=== PATIENT | female | born 1995 | race Caucasian/White ===

== ENCOUNTER 2018-07-09 17:07 | Inpatient (IN) | payer OTHER ==
[2018-07-09] MEDS ORDERED: HYDROmorphONE/DILAUDID 2 MG/ML INJ IVP ONE (17:39)
[2018-07-09] MEDS ORDERED: NS 1,000 ML IV ONE ×2 (17:39→18:14)
[2018-07-09] MEDS ORDERED: FAMOTIDINE 20 MG/NACL 50 ML IV ONE (17:39)
[2018-07-09] MEDS ORDERED: ONDANSETRON 4 MG/2 ML VIAL IVP ONE ×2 (17:39→20:03)
--- NOTE | 2018-07-09 17:45 | EDPHY ---
H & P Time Seen by Provider: 07/09/18 17:22 HPI/ROS: HPI Abdominal pain. 23-year-old female by private vehicle with boyfriend. This patient reports that over the last 3-4 weeks she has had intermittent crampy mid abdominal pain mostly after meals unusually starting in the morning. She also reports that to some extent she has had this type of pain for the last 6 months. She reports that this pain usually lasts about 3-4 hours and then resolves. She woke up this morning and developed the pain. The pain has been persistent all day and coming on in waves of intensity. Pain is described as sharp and cramping and mostly in her mid upper abdomen. She reports having associated diarrhea which she has had in the past. She reports having nausea but no vomiting. She denies any bloody or melenic stool. No prior abdominal surgical history. ROS: Constitutional: No fever, no chills. No weakness. Eyes: No discharge. No changes in vision. ENT: No sore throat. No nasal congestion or rhinorrhea. Respiratory: No cough. No shortness of breath. Cardiac: No chest pain, no palpitations. Gastrointestinal: As above. Genitourinary: No hematuria. No dysuria or increased frequency with urination. Musculoskeletal: No back pain. No neck pain. No myalgias or arthralgias. Skin: No rashes. Neurological: No headache. No focal weakness or altered sensation. Past medical history: As above. And asthma. Review of her medical records reveals that she was admitted to the hospital with similar complaints in late May of 2016. At that time CT scan showed inflammation of the ileum. She was ultimately diagnosed with a Cryptosporidium infection with likely underlying inflammatory bowel disease. A colonoscopy was not done. She was discharged on appropriate antibiotics and Infectious Disease Clinic follow-up. Social history: Occasional alcohol. Nonsmoker. Here with her boyfriend. Physical Exam: General Appearance: Alert, very anxious and emotional. She appears uncomfortable. This patient is responding to questions appropriately and in full sentences. This patient appears well-hydrated and well-nourished. Eyes: Pupils equal and round no pallor or injection. No lid edema, erythema or injection. Respiratory: There are no retractions, lungs are clear to auscultation with good air movement bilaterally. Cardiovascular: Regular rate and rhythm. No murmur. Gastrointestinal: Abdomen is soft with mid epigastric tenderness on palpation, she also has some mild right lower quadrant tenderness on palpation, no masses, bowel sounds normal. No focal tenderness at McBurney's point. No Haskins sign. Neurological: Motor sensory function is grossly intact. Cranial nerves are normal. Gait is normal. Skin: Warm and dry, no rashes. Musculoskeletal: Neck is supple and nontender. Extremities are symmetrical. All joints range without pain or impingement. Psychiatric: No agitation. No depression. Database: EKG: Imaging: Right upper quadrant ultrasound: The appendix is well visualized and is normal. The gallbladder, ductal system and right upper quadrant anatomy including the pancreas were well visualized and are normal. Results were discussed with staff radiologist Dr. Kei Friedman. Procedures: Emergency department course: Triage vital signs reviewed. She is tachycardic at 111. Triage vital signs are otherwise normal. She is afebrile. IV was placed. She was started on IV normal saline with 1 L to be given over the next hour. She will initially be given 20 mg of IV Pepcid, 4 mg of IV Zofran and 0.5 mg of IV hydromorphone. Ultrasound of gallbladder and right lower quadrant to be obtained. She consents to workup. 7:00 p.m., patient re-evaluated, ultrasound is just starting at this time. Her pain however is well controlled and she is feeling much better. 8:00 p.m., the patient is complaining of nausea again. She was given 6.25 mg of IV Phenergan and 4 mg of IV Zofran. 8:20 p.m., the patient was re-evaluated, results of her blood work and ultrasound discussed with her and her boyfriend. I discussed discharging her but she does not want to do this. She states that she does not feel well enough to be discharged. I explained I would admit her for observation, IV hydration and antiemetics. Repeat abdominal exam she is soft with mild and vague tenderness on palpation in the mid and upper abdomen. Hospitalist paged for admission. 8:45 p.m., spoke with hospitalist, Dr. Sheth. Case discussed in detail with her. She accepts this patient for admission to the hospitalist service. The patient was admitted to the hospitalist service in stable condition. Differential Diagnosis: The differential diagnosis on this patient includes but is not limited to irritable bowel syndrome, inflammatory bowel syndrome, pancreatitis, cholecystitis, biliary colic. This represents a partial list of diagnoses considered. These considerations are based on history, physical exam, past history, reassessment and diagnostic testing. Smoking Status: Never smoked Constitutional: Initial Vital Signs Temperature (C) 36.6 C 07/09/18 17:12 Heart Rate 111 H 07/09/18 17:12 Respiratory Rate 18 07/09/18 17:12 Blood Pressure 121/84 H 07/09/18 17:12 O2 Sat (%) 99 07/09/18 17:12 O2 Delivery Mode Room Air Allergies/Adverse Reactions: No Known Allergies Allergy (Verified 07/09/18 17:11) Home Medications: Medication Instructions Recorded Ascorbic Acid [Vitamin C 500 mg 500 mg PO DAILY 07/09/18 (*)] Ethinyl Estradiol/Drospirenone 1 each PO DAILY 07/09/18 [Calli 3 mg-0.02 mg Tablet] Herbals/Supplements -Info Only 1 ea PO DAILY 07/09/18 Ibuprofen [Motrin (*)] 200 mg PO Q6H PRN 07/09/18 Medical Decision Making - Data Points Laboratory Results: Laboratory Results 07/10/18 04:37 07/10/18 04:37 Microbiology Results: MICROBIOLOGY 07/09/18 22:15 Stool Gastrointestinal Tract Panel (PCR) - Final Astrovirus Medications Given: Hydromorphone HCl (Dilaudid) 0.2 - 0.4 mg IVP Q4HRS PRN PRN Reason: Pain, Severe Unable to Take PO Stop: 07/19/18 21:58 Last Admin: 07/10/18 19:33 Dose: 0.4 mg Hyoscyamine Sulfate (Levsin, Hyomax-Sl) 0.125 mg PO Q6HRS PRN PRN Reason: Spasms Stop: 01/06/19 13:37 Last Admin: 07/10/18 13:56 Dose: 0.125 mg Sodium Chloride (Ns) 1,000 mls @ 100 mls/hr IV CONT JAY JAY Stop: 01/05/19 21:59 Last Admin: 07/09/18 22:36 Dose: 1,000 mls Lorazepam (Ativan Injection) 0.5 - 1 mg IVP Q8HRS PRN PRN Reason: Anxiety, Unable to Take PO Stop: 01/05/19 21:58 Last Admin: 07/10/18 13:46 Dose: 1 mg Miscellaneous Medication (Ethinyl Estradiol/Drospirenone [Calli 3 Mg-0.02 Mg Tablet]) 1 each PO DAILY JAY JAY Stop: 01/06/19 08:59 Last Admin: 07/10/18 08:36 Dose: Not Given Ondansetron HCl (Zofran) 4 mg IVP Q4HRS PRN PRN Reason: Nausea/Vomiting, Can't Take PO Stop: 01/05/19 21:58 Last Admin: 07/10/18 11:32 Dose: 4 mg Pantoprazole Sodium (Protonix) 40 mg PO DAILY JAY JAY Stop: 01/06/19 18:14 Last Admin: 07/10/18 18:33 Dose: 40 mg Promethazine HCl (Phenergan) 6.25 - 12.5 mg IVP Q6HRS PRN PRN Reason: Nausea/Vomiting, Use 2nd Stop: 01/05/19 21:58 Last Admin: 07/10/18 12:12 Dose: 12.5 mg Discontinued Medications Hydromorphone HCl (Dilaudid) 0.5 mg IVP EDNOW ONE Stop: 07/09/18 17:40 Last Admin: 07/09/18 17:53 Dose: 0.5 mg Sodium Chloride (Ns) 1,000 mls @ 0 mls/hr IV EDNOW ONE; Wide Open PRN Reason: Protocol Stop: 07/09/18 17:40 Last Admin: 07/09/18 17:57 Dose: 1,000 mls Famotidine/Sodium Chloride (Pepcid 20 Mg (Premix)) 50 mls @ 200 mls/hr IV EDNOW ONE Stop: 07/09/18 17:53 Last Admin: 07/09/18 17:56 Dose: 50 mls Sodium Chloride (Ns) 1,000 mls @ 0 mls/hr IV EDNOW ONE; Wide Open PRN Reason: Protocol Stop: 07/09/18 18:15 Last Admin: 07/09/18 18:15 Dose: 1,000 mls Lorazepam (Ativan Injection) 1 mg IVP ONCE ONE Stop: 07/10/18 18:46 Last Admin: 07/10/18 18:33 Dose: 1 mg Ondansetron HCl (Zofran) 4 mg IVP EDNOW ONE Stop: 07/09/18 17:40 Last Admin: 07/09/18 17:54 Dose: 4 mg Ondansetron HCl (Zofran) 4 mg IVP EDNOW ONE Stop: 07/09/18 20:04 Last Admin: 07/09/18 20:07 Dose: 4 mg Promethazine HCl (Phenergan) 12.5 mg IVP ONCE ONE Stop: 07/09/18 18:10 Last Admin: 07/09/18 18:13 Dose: 12.5 mg Promethazine HCl (Phenergan) 6.25 mg IVP EDNOW ONE Stop: 07/09/18 20:03 Last Admin: 07/09/18 20:07 Dose: 6.25 mg Departure - Departure Disposition: [facility] Acute Clinical Impression: Upper abdominal pain, Diarrhea
[2018-07-09 18:00] LABS: PLATELET COUNT 299 10^3/uL (150-400)
[2018-07-09] MEDS ORDERED: PROMETHAZINE HCL 25 MG/ML INJ IVP ONE ×2 (18:09→20:02)
[2018-07-09] MEDS ORDERED: LORazepam 0.5 MG TAB PO PRN (21:59)
[2018-07-09] MEDS ORDERED: HYDROCODONE/APAP 5/325 TAB PO PRN (21:59)
[2018-07-09] MEDS ORDERED: LORazepam 2 MG/ML INJ IVP PRN (21:59)
[2018-07-09] MEDS ORDERED: ACETAMINOPHEN 325 MG TAB PO PRN (21:59)
--- NOTE | 2018-07-09 22:10 | PDGENHP ---
History and Physical - Chief Complaint abd pain/diarrhea - History of Present Illness 23 yo F with no significant PMH presenting with severe abdominal pain, recurrent bouts of severe "explosive" diarrhea and nausea Patient notes that she has had this for the last 2 years at least and it occurs approximately every 2 to 3 weeks but seems to be increasing in incidents and severity. This time was the worst she has ever experienced. She was hospitalized here approximately 2 years ago for similar issues and at that time was seen by both ID and GI. There was a plan to have a colonoscopy but she had a positive cryptosporidium Ag and so that was deferred. She has not had any relief in her sxs since that time. She notes she has had issues with needing to take a long time to defecate since she was young, and in between the bouts of severe diarrhea this is still the case. She has changed her diet significantly to try to eliminate these sxs including avoiding dairy and most gluten with no change in sxs. She does have an appointment to see GI in July but as her sxs in the last 24 hours were so severe she did not feel she could wait until then. She is very concerned that she has Crohn's disease. History Information - Allergies/Home Medication List Allergies/Adverse Reactions: No Known Allergies Allergy (Verified 07/09/18 17:11) Home Medications: Ascorbic Acid [Vitamin C 500 mg (*)] 500 mg PO DAILY 07/09/18 [Last Taken Unknown] Ethinyl Estradiol/Drospirenone [Calli 3 mg-0.02 mg Tablet] 1 each PO DAILY 07/09 [Last Taken 07/09/18] Herbals/Supplements -Info Only 1 ea PO DAILY 07/09/18 [Last Taken Unknown] Ibuprofen [Motrin (*)] 200 mg PO Q6H PRN 07/09/18 [Last Taken Unknown] I have personally reviewed and updated: family history, medical history, social history, surgical history - Past Medical History no pertinent PMH Additional medical history: PTSD - Surgical History Reports: no pertinent surgical hx - Family History Additional family history: Mother with MS - Social History Smoking Status: Never smoked Alcohol Use: Occasionally Drug Use: Marijuana Additional social history: 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 Originally from [place], lives in the dormitory. Sexually active with 1 partner on OCPs. Denies STIs. Review of Systems Review of Systems: ROS: 10pt was reviewed & negative except for what was stated in HPI & below Physical Exam Physical Exam: Temp Pulse Resp BP Pulse Ox 36.6 C 99 24 H 99/71 L 96 07/09/18 17:12 07/09/18 18:16 07/09/18 18:16 07/09/18 18:16 07/09/18 18:16 Constitutional: no apparent distress, appears nourished Eyes: PERRL, anicteric sclera Ears, Nose, Mouth, Throat: moist mucous membranes, hearing normal Cardiovascular: regular rate and rhythym, no murmur, rub, or gallop, No edema Respiratory: no respiratory distress, no rales or rhonchi Gastrointestinal: normoactive bowel sounds, soft, non-tender abdomen Genitourinary: no bladder tenderness Skin: warm, normal color Musculoskeletal: full muscle strength Neurologic: AAOx3 Psychiatric: interacting appropriately, not anxious, not encephalopathic Lab Data & Imaging Review 07/09/18 17:30 07/09/18 17:30 WBC 5.74 10^3/uL (3.80-9.50) 07/09/18 17:30 RBC 4.80 10^6/uL (4.18-5.33) 07/09/18 17:30 Hgb 14.8 g/dL (12.6-16.3) 07/09/18 17:30 Hct 43.0 % (38.0-47.0) 07/09/18 17:30 MCV 89.6 fL (81.5-99.8) 07/09/18 17:30 MCH 30.8 pg (27.9-34.1) 07/09/18 17:30 MCHC 34.4 g/dL (32.4-36.7) 07/09/18 17:30 RDW 12.1 % (11.5-15.2) 07/09/18 17:30 Plt Count 299 10^3/uL (150-400) 07/09/18 17:30 MPV 9.7 fL (8.7-11.7) 07/09/18 17:30 Neut % (Auto) 69.1 % (39.3-74.2) 07/09/18 17:30 Lymph % (Auto) 20.0 % (15.0-45.0) 07/09/18 17:30 [place] % (Auto) 10.3 % (4.5-13.0) 07/09/18 17:30 Eos % (Auto) 0.0 % (0.6-7.6) L 07/09/18 17:30 Baso % (Auto) 0.3 % (0.3-1.7) 07/09/18 17:30 Nucleat RBC Rel Count 0.0 % (0.0-0.2) 07/09/18 17:30 Absolute Neuts (auto) 3.96 10^3/uL (1.70-6.50) 07/09/18 17:30 Absolute Lymphs (auto) 1.15 10^3/uL (1.00-3.00) 07/09/18 17:30 Absolute Monos (auto) 0.59 10^3/uL (0.30-0.80) 07/09/18 17:30 Absolute Eos (auto) 0.00 10^3/uL (0.03-0.40) L 07/09/18 17:30 Absolute Basos (auto) 0.02 10^3/uL (0.02-0.10) 07/09/18 17:30 Absolute Nucleated RBC 0.00 10^3/uL (0-0.01) 07/09/18 17:30 Immature Gran % 0.3 % (0.0-1.1) 07/09/18 17:30 Immature Gran # 0.02 10^3/uL (0.00-0.10) 07/09/18 17:30 Sodium 137 mEq/L (135-145) 07/09/18 17:30 Potassium 4.0 mEq/L (3.3-5.0) 07/09/18 17:30 Chloride 107 mEq/L (97-110) 07/09/18 17:30 Carbon Dioxide 17 mEq/l (22-31) L 07/09/18 17:30 Anion Gap 13 mEq/L (6-14) 07/09/18 17:30 BUN 10 mg/dL (7-23) 07/09/18 17:30 Creatinine 0.7 mg/dL (0.6-1.0) 07/09/18 17:30 Estimated GFR > 60 07/09/18 17:30 Glucose 84 mg/dL (70-100) 07/09/18 17:30 Calcium 9.8 mg/dL (8.5-10.4) 07/09/18 17:30 Total Bilirubin 0.4 mg/dL (0.1-1.4) 07/09/18 17:30 Conjugated Bilirubin 0.2 mg/dL (0.0-0.5) 07/09/18 17:30 Unconjugated Bilirubin 0.2 mg/dL (0.0-1.1) 07/09/18 17:30 AST 40 IU/L (14-46) 07/09/18 17:30 ALT 35 IU/L (9-52) 07/09/18 17:30 Alkaline Phosphatase 73 IU/L (38-126) 07/09/18 17:30 Total Protein 8.1 g/dL (6.3-8.2) 07/09/18 17:30 Albumin 4.8 g/dL (3.5-5.0) 07/09/18 17:30 Lipase 107 IU/L (23-300) 07/09/18 17:30 Beta HCG, Qual NEGATIVE 07/09/18 17:30 Urine Color YELLOW 07/09/18 21:20 Urine Appearance HAZY 07/09/18 21:20 Urine pH 5.0 (5.0-7.5) 07/09/18 21:20 Ur Specific [place] 1.014 (1.002-1.030) 07/09/18 21:20 Urine Protein NEGATIVE (NEGATIVE) 07/09/18 21:20 Urine Ketones 1+ (NEGATIVE) H 07/09/18 21:20 Urine Blood NEGATIVE (NEGATIVE) 07/09/18 21:20 Urine Nitrate NEGATIVE (NEGATIVE) 07/09/18 21:20 Urine Bilirubin NEGATIVE (NEGATIVE) 07/09/18 21:20 Urine Urobilinogen NEGATIVE EU (0.2-1.0) 07/09/18 21:20 Ur Leukocyte Esterase NEGATIVE (NEGATIVE) 07/09/18 21:20 Urine RBC 1-3 /hpf (0-3) 07/09/18 21:20 Urine WBC 1-3 /hpf (0-3) 07/09/18 21:20 Ur Epithelial Cells TRACE /lpf (NONE-1+) 07/09/18 21:20 Hyaline Casts 5-15 /lpf (0-1) 07/09/18 21:20 Urine Mucus TRACE /lpf (NONE-1+) 07/09/18 21:20 Urine Glucose NEGATIVE (NEGATIVE) 07/09/18 21:20 Visualized and Interpreted imaging results: Yes Interpretation: abd US: normal Assessment & Plan Assessment: Diarrhea (Acute) Upper abdominal pain (Acute) 23 yo F with 2+ years of recurrent frequent diarrhea presenting with n/v/abd pain/diarrhea # recurrent diarrhea/n/v/abd pain: with diarrhea as what sounds like the predominant complaint and sxs persistent and worsening over the last 2 years. Prior work up showing crypto not likely to be the ongoing etiology. Suspect that at this point patient would benefit from colonoscopy for definitive diagnosis given severity and persistence of sxs, however discussed with Dr. Matute who would like to hold off on that and will evaluate patient in am. Will repeat stool pathogen panel, check esr/crp and treat conservatively overnight. Differential dx including IBD, IBS, persistent or recurrent infection seems less likely. # volume depletion: with mild hypotension and clinical signs of dehydration, will provide IVF overnight # observation status Patient new to my care. Old records reviewed and summarized as above. Care plan reviewed with ER doctor and Dr. Matute as above.
[2018-07-09] MEDS: NS 1,000 ML IV SCH (22:36)
[2018-07-09] MEDS: PROMETHAZINE HCL 25 MG/ML INJ IVP PRN (22:57)
[2018-07-09] MEDS: HYDROmorphONE/DILAUDID 1 MG/ML INJ IVP PRN (22:58)
[2018-07-10] MEDS: HYDROmorphONE/DILAUDID 1 MG/ML INJ IVP PRN ×4 (04:53→19:33)
[2018-07-10] MEDS: ONDANSETRON 4 MG/2 ML VIAL IVP PRN ×2 (04:53→11:32)
[2018-07-10 05:24] LABS: PLATELET COUNT 230 10^3/uL (150-400)
[2018-07-10] MEDS: DROSPIRENONE PO SCH (08:36)
[2018-07-10] MEDS: ETHINYL ESTRADIOL PO SCH (08:36)
--- NOTE | 2018-07-10 11:00 | ASMTCMCOM ---
CM Note CM Note Notes: Pt is a 23 y/o female admitted for diarrhea, dehydration, pain and hx of ibs. Pt may get scoped during this hospitalization. Pt will most likely d/c independent when medically stable. CM available for changes. Plan: Independent Date Signed: 07/10/2018 11:00 AM Electronically Signed By:STANTNO Cabrera
[2018-07-10] MEDS: PROMETHAZINE HCL 25 MG/ML INJ IVP PRN ×2 (12:12→22:39)
--- NOTE | 2018-07-10 13:00 | PDCONSULT ---
Claim Clinician Note: Full consult dictated update: stool studies + for astrovirus. Acute infection will interfere with ability to assess for underlying IBD. Rec conservative treatment for diarrhea including increase PO fluids, antispasmodic such as Levsin and OK for low dose antidiarrheal Cancel colonoscopy for now Follow up with GI per her scheduled appointment. Spoke to floor nurse about plan she will relay to patient. Will sign off for now
--- NOTE | 2018-07-10 13:14 | GCON ---
DATE OF CONSULTATION: 07/10/2018 REFERRING PHYSICIAN: Yousuf Montenegro MD CHIEF COMPLAINT: Abdominal pain and diarrhea. HISTORY OF PRESENT ILLNESS: I am asked to see this patient in consultation by Dr. Montenegro for jessica f complaint of chronic abdominal pain and diarrhea. The patient is a 23-year-old who has had history of abdominal pain and episodes of diarrhea, was admitted to the hospital in 2016, did show inflammat ory changes in the ileum; however, she then had a positive stool culture for Cryptosporidium and was treated. She states that her symptoms have persisted. She gets bouts of diarrhea about once a month t hat will last about 6 hours, associated with abdominal pain. She did have an episode that lasted 3 da ys last month. Did have an appointment to see a physician in my office last week; however, she cancel ed, does have an appointment coming up in 2 weeks. She has not had any blood, but questionable perhap s black stools. She denies Pepto-Bismol. She feels like she has fevers and chills, but no objective t emperature. She has been gluten free and dairy free for over year and continues to have symptoms. No family history for colitis or Crohn disease. ALLERGIES: No reported allergies. HOME MEDICATIONS: Include ibuprofen on this list, vitamin C, herbal supplements, control pills . PAST MEDICAL HISTORY: States she has a history of kidney stones. FAMILY HISTORY: Negative for colitis or Crohn disease. SOCIAL HISTORY: Never used tobacco. REVIEW OF SYSTEMS: I performed a complete review of systems, which is negative, except for the perti nent positives, negatives noted above in HPI. PHYSICAL EXAM: VITAL SIGNS: Afebrile at 36.8, BP 98/58, pulse 77. CONSTITUTIONAL: Alert and oriented in no apparent distress. HEENT: Eyes: No scleral icterus. Oropharynx: No oral lesions. CARDIOVASCULA R: Regular rhythm. CHEST: Clear auscultation. ABDOMEN: Soft and nontender. NEUROLOGIC: Nonfocal. SKIN : No rashes. LABORATORY DATA: Normal white count 5, platelets 230, hematocrit 37.7. CRP is elevated at 28. Pregn trell test is negative. Stool studies are pending. Ultrasound is reported as normal abdominal ultrasound. ASSESSMENT: Patient with chronic abdominal pain with intermittent diarrhea for at least 2 years, pre viously was diagnosed with infectious colitis. Continues to have symptoms. Differential diagnosis wou ld include postinfectious irritable bowel syndrome, also consider acute infection versus inflammatory bowel disease. Patient does have an elevated C-reactive protein. I think eventually patient would be nefit from colonoscopy. Also, given that she has a lot of epigastric pain, I would recommend an upper endoscopy in the same setting; however, I think it would be of value to rule out acute infection as this could make it very difficult to assess if she has underlying inflammatory bowel disease. PLAN: 1. Will await PCR. 2. Recommend PPI for now. 3. Assuming that her stool pathology panel is negative, then can prep for upper and lower endoscopy tomorrow. Would do this with sedation given her narcotic use and acute pain. Thank you for this consultation. /[id number]/MODL
[2018-07-10] MEDS ORDERED: HYOSCYAMINE SULFATE 0.125 MG TAB PO PRN ×2 (13:38→18:12)
--- NOTE | 2018-07-10 13:42 | HOSPPROG ---
Hospitalist Progress Note Assessment/Plan: Diarrhea (Acute) Upper abdominal pain (Acute) 23 yo F with 2+ years of recurrent frequent diarrhea presenting with n/v/abd pain/diarrhea # recurrent diarrhea/n/v/abd pain: - with diarrhea as what sounds like the predominant complaint and sxs persistent and worsening over the last 2 years. - Prior work up showing crypto not likely to be the ongoing etiology. - GI PCR + for astrovirus this AM - GI consulted who was initially planning EGD/Colonoscopy which have now been canceled due to + PCR, recommends supportive care with IVF, PRN Levsin, and anti -diarrheal # volume depletion: with mild hypotension and clinical signs of dehydration, s/ p IVF overnight Dispo: Pending clinical cours e Subjective: Patient reports epigastric pain this AM Objective: Vital Signs Temp Pulse Resp BP Pulse Ox 36.8 C 77 16 98/58 L 93 07/10/18 06:58 07/10/18 06:58 07/10/18 06:58 07/10/18 06:58 07/10/18 06:58 Microbiology 07/09/18 22:15 Gastrointestinal Tract Panel (PCR) - Final Stool Astrovirus Laboratory Results 07/10/18 04:37 07/10/18 04:37 07/09/18 07/10/18 07/11/18 05:59 05:59 05:59 Intake Total 1683 Balance 1683 - Physical Exam Constitutional: uncomfortable Eyes: PERRL Ears, Nose, Mouth, Throat: moist mucous membranes Cardiovascular: regular rate and rhythym Respiratory: no respiratory distress Gastrointestinal: tenderness (epigastric area) Genitourinary: no bladder tenderness Skin: warm Musculoskeletal: full muscle strength Neurologic: AAOx3 Psychiatric: interacting appropriately ICD10 Worksheet Patient Problems: Problems Problem Status Onset Diarrhea Acute Upper abdominal pain Acute Abdominal pain Acute Crohns disease Acute
--- NOTE | 2018-07-10 14:24 | PDMN ---
Medical Necessity Medical necessity: MCG: M170 gastroenteritis : persistent abd pain, N/V/ diarrhea, + astrovirus, mild hypotension, dehydration, change to INPT for ongoing med nec. further eval , monitoring and tx of above. IVF, IV antiemetics, IV pain, IV Ativan,
[2018-07-10] MEDS ORDERED: LIDOCAINE 2% VISCOUS 15 ML UDCUP PO PRN (18:11)
[2018-07-10] MEDS ORDERED: MAG HYDROX/AL HYDROX/SIMETH 30 ML UDCUP PO PRN (18:12)
[2018-07-10] MEDS: PANTOPRAZOLE SODIUM 40 MG TAB PO SCH (18:33)
[2018-07-10] MEDS ORDERED: LORazepam 2 MG/ML INJ IVP ONE (18:45)
[2018-07-10] MEDS ORDERED: HYDROmorphONE/DILAUDID 1 MG/ML INJ IVP PRN (22:27)
[2018-07-10] MEDS ORDERED: LORazepam 1 MG TAB PO PRN (22:29)
[2018-07-11] MEDS: ONDANSETRON 4 MG/2 ML VIAL IVP PRN (04:42)
[2018-07-11] MEDS: oxyCODONE IR 5 MG TAB PO PRN ×3 (04:42→22:14)
[2018-07-11] MEDS: NS 1,000 ML IV SCH (04:50)
[2018-07-11 05:32] LABS: PLATELET COUNT 223 10^3/uL (150-400)
--- NOTE | 2018-07-11 07:44 | CPEKG ---
Test Reason : OPEN Blood Pressure : / mmHG Vent. Rate : 086 BPM Atrial Rate : 086 BPM P-R Int : 119 ms QRS Dur : 095 ms QT Int : 357 ms P-R-T Axes : 076 039 030 degrees QTc Int : 427 ms Sinus rhythm Confirmed by Patel Perez ([id number]) on 07/11/2018 7:43:38 AM Referred By: Confirmed By:Patel Perez
[2018-07-11] MEDS: PANTOPRAZOLE SODIUM 40 MG TAB PO SCH (10:01)
[2018-07-11] MEDS: ETHINYL ESTRADIOL PO SCH (10:12)
[2018-07-11] MEDS: DROSPIRENONE PO SCH (10:12)
[2018-07-11] MEDS: ONDANSETRON DISINTEGRATING 4 MG TAB PO PRN ×3 (10:59→20:50)
[2018-07-11] MEDS: LORazepam 2 MG/ML INJ IVP PRN (11:28)
--- NOTE | 2018-07-11 12:52 | HOSPPROG ---
Hospitalist Progress Note Assessment/Plan: Diarrhea (Acute) Upper abdominal pain (Acute) 23 yo F with 2+ years of recurrent frequent diarrhea presenting with n/v/abd pain/diarrhea # recurrent diarrhea/n/v/abd pain: - with diarrhea as what sounds like the predominant complaint and sxs persistent and worsening over the last 2 years. - Prior work up showing crypto not likely to be the ongoing etiology. - GI PCR + for astrovirus - GI consulted who was initially planning EGD/Colonoscopy which was canceled due to + PCR, recommends supportive care with IVF, PRN Levsin, and anti- diarrheal, f/u outpatient # volume depletion: with mild hypotension and clinical signs of dehydration, s/ p IVF overnight Dispo: Pending clinical course Subjective: Patient had episode of severe chest pain overnight, EKG, Troponin, CXR ordered which was negative. Patient reports TTP in epigastric region Objective: Vital Signs Temp Pulse Resp BP Pulse Ox 36.9 C 82 16 101/67 98 07/11/18 08:00 07/11/18 08:00 07/11/18 08:00 07/11/18 08:00 07/11/18 08:00 Laboratory Results 07/11/18 04:57 07/11/18 04:57 07/10/18 07/11/18 07/12/18 05:59 05:59 05:59 Intake Total 1700 Balance 1700 - Physical Exam Constitutional: uncomfortable Eyes: PERRL Ears, Nose, Mouth, Throat: moist mucous membranes Cardiovascular: regular rate and rhythym Respiratory: no respiratory distress Gastrointestinal: No tenderness, No guarding, No rebound, No distension Genitourinary: No no bladder tenderness Skin: warm Neurologic: AAOx3 Psychiatric: interacting appropriately ICD10 Worksheet Patient Problems: Problems Problem Status Onset Diarrhea Acute Upper abdominal pain Acute Abdominal pain Acute Crohns disease Acute
[2018-07-11] MEDS: LOPERAMIDE HCL 2 MG CAP PO PRN (16:34)
[2018-07-11] MEDS: PROMETHAZINE HCL 25 MG/ML INJ IVP PRN (17:44)
[2018-07-12] MEDS: oxyCODONE IR 5 MG TAB PO PRN (02:32)
[2018-07-12] MEDS: ONDANSETRON DISINTEGRATING 4 MG TAB PO PRN ×2 (02:32→10:13)
[2018-07-12] MEDS: LOPERAMIDE HCL 2 MG CAP PO PRN (02:32)
[2018-07-12] MEDS: PROMETHAZINE HCL 25 MG/ML INJ IVP PRN (03:04)
[2018-07-12] MEDS: LORazepam 2 MG/ML INJ IVP PRN (03:55)
[2018-07-12] MEDS: ETHINYL ESTRADIOL PO SCH (07:19)
[2018-07-12] MEDS: DROSPIRENONE PO SCH (07:19)
[2018-07-12 10:04] VITALS: BP 88/57
[2018-07-12] MEDS: PANTOPRAZOLE SODIUM 40 MG TAB PO SCH (10:13)
--- NOTE | 2018-07-12 11:02 | PDDCSUM ---
Discharge Summary Discharge Summary: Date of Admission: 07/10/2018 Date of Discharge: 07/12/2018 Consults: GI Procedures: CXR Followup: Appt with GI of the [facility] on 07/28 Hospital Course Problem List: 23 yo F with 2+ years of recurrent frequent diarrhea presenting with n/v/abd pain/diarrhea # recurrent diarrhea/n/v/abd pain: - with diarrhea as what sounds like the predominant complaint and sxs persistent and worsening over the last 2 years. - Prior work up showing crypto not likely to be the ongoing etiology. - GI PCR + for astrovirus - GI consulted who was initially planning EGD/Colonoscopy which was canceled due to + PCR, recommends supportive care with IVF, PRN Levsin, and anti- diarrheal, f/u outpatient - Patient continues to have symptoms of epigastric pain, nausea/vomiting, diarrhea, patient wishes to be discharged this morning. I discussed risks and benefits of discharge and signs and symptoms to look for to return to the hospital. I will discharge patient with short supply of pain medications, anti- spasmodic, anti-diarrheal, and anti-nausea. # volume depletion: with mild hypotension and clinical signs of dehydration, s/ p IVF overnight Time spent on discharge was >35 minutes with >50% of time spent on patient education and counseling
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
== END 2018-07-12 11:35 | disposition home or self-care (01) | DRG 392 ==
LOC: F3E 22:18 → OBSVTOIN 07-10 14:10
PROVIDERS: ADMIT Internal Medicine; ATTEND Internal Medicine
DX: R19.7 Diarrhea, unspecified (principal); R10.13 Epigastric pain; E86.0 Dehydration; R11.2 Nausea with vomiting, unspecified; J45.909 Unspecified asthma, uncomplicated; Z87.442 Personal history of urinary calculi
CPT/HCPCS: 96365; G0378; J1170; J2060; J2405; J2550

== ENCOUNTER → 2018-09-29 | Outpatient (CLI) | payer OTHER | LOC: FIMAGING 09:53 | PROVIDERS: ATTEND Internal Medicine Gastroenterology | DX: R10.13 Epigastric pain (principal) | CPT/HCPCS: 78264; A9541 ==